=== PATIENT | female | born 1955 | race Caucasian/White ===

== ENCOUNTER 2022-09-11 12:42 | Outpatient (CLI) | payer MEDICARE, BC | END 2022-09-11 23:59 | disposition home or self-care (01) | LOC: RAD 12:42 | PROVIDERS: ATTEND Internal Medicine Cardiovascular Disease | DX: I34.81 Nonrheumatic mitral (valve) annulus calcification (principal); R00.2 Palpitations; R55 Syncope and collapse | CPT/HCPCS: 93306 ==